=== PATIENT | female | born 1985 | race Caucasian/White ===

== ENCOUNTER → 2017-08-14 | Outpatient (CLI) | payer OTHER ==
[~2017-08-14] MED LIST: DOCU-94 PO; Juice Plus Fruit PO; PREN-83; PRLSR20 PO
[2017-08-14 17:34] LABS: BASO % 0.6 %; BASO ABS # 0.03 K/uL (0-0.2); EOS % 2.7 %; EOS ABS # 0.13 K/uL (0-0.5); HEMATOCRIT 40.2 % (37-47); HEMOGLOBIN 13.5 g/dL (12.0-16.0); IG# 0.01 K/uL (0.00-0.02); LYMPH % 30.2 %; LYMPH ABS # 1.47 K/uL (1.2-3.4); MEAN CELL VOLUME 92.4 fL (80-100); MEAN CORPUSCULAR HGB CONC 33.6 g/dl (32-36); MEAN PLATELET VOLUME 12.2 fL (7.4-10.4); MONO % 8.4 %; MONO ABS # 0.41 K/uL (0.11-0.59); NEUT % 57.9 %; NEUT ABS # 2.81 K/uL (1.4-6.5); PLATELET COUNT 189 K/uL (130-400); RED CELL DISTRIBUTION WIDTH CV 13.3 % (11.5-14.5); RED CELL DISTRIBUTION WIDTH SD 44.9 fL (36.4-46.3); WHITE BLOOD COUNT 4.86 K/uL (4.8-10.8)
[2017-08-14 18:10] LABS: BLOOD UREA NITROGEN 14 mg/dl (7-18); CALCIUM 9.1 mg/dl (8.5-10.1); CARBON DIOXIDE 26 mmol/L (21-32); CREATININE 0.86 mg/dl (0.60-1.20); GLUCOSE 95 mg/dl (70-99); SODIUM 138 mmol/L (136-145)
== END | disposition home or self-care (01) ==
LOC: C.LABPVFM 12:13
PROVIDERS: ATTEND Nurse Practitioner Family
DX: R00.2 Palpitations (principal); R42 Dizziness and giddiness; R53.83 Other fatigue

== ENCOUNTER → 2017-11-05 | Outpatient (CLI) | payer OTHER | END | disposition home or self-care (01) | LOC: C.LABPVFM 09:57 | PROVIDERS: ATTEND Nurse Practitioner Family | DX: E55.9 Vitamin D deficiency, unspecified (principal) ==

== ENCOUNTER → 2018-02-25 | Outpatient (CLI) | payer OTHER ==
--- NOTE | 2018-02-25 20:13 | DIAGNOSTIC IMAGING REPORT ---
LUMBAR SPINE W/O CONTRAST CLINICAL HISTORY: 32 years-old Female with LUMBAR RADICULOPATHY. Chronic low back pain with radiation into the left lower extremity. COMPARISON: Lumbar spine radiographs 08/10/2014 TECHNIQUE: Multiplanar, multi sequence MRI of the lumbar spine was performed without intravenous contrast. 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 Conus medullaris terminates at L1. Visualized thoracic spinal cord appears normal. The cauda equina are within normal limits. No acute fracture, focal bone marrow edema or marrow replacing process. There is mild intervertebral disc space narrowing at T11-T12 with small Schmorl's node involving the superior endplate T12. Small posterior disc bulge flattens the ventral thecal sac at this interspace. There is mild facet arthrosis at this level as well with suggested mild bilateral foraminal narrowing seen only on the sagittal images. Aorta and IVC appear unremarkable. No pathologically enlarged lymph nodes identified. T12-L1: No central canal or neural foraminal stenosis. L1-L2: No central canal or neural foraminal stenosis. L2-L3: No central canal or neural foraminal stenosis. Mild ligamentum flavum thickening. L3-L4: No central canal or neural foraminal stenosis. Mild ligamentum flavum thickening with mild facet arthrosis. L4-L5: Mild intervertebral disc space narrowing with disc desiccation. Circumferential annular disc bulge with annular fissure and small central disc protrusion narrows the AP dimension of the thecal sac to 7 mm causing moderate central canal and mild bilateral foraminal narrowing. Ligamentum flavum thickening with mild facet arthrosis. L5-S1: Ligamentum flavum thickening with mild facet arthrosis contributes to mild left foraminal narrowing. Right foramen and central canal are patent. IMPRESSION: 1. Mild intervertebral disc space narrowing at L4-L5 with circumferential annular disc bulge, annular fissure and small central disc protrusion causes moderate central canal and mild bilateral foraminal narrowing. 2. No acute fracture, subluxation or focal bone marrow edema. The above report was generated using voice recognition software. It may contain grammatical, syntax or spelling errors. Electronically signed by: Nima Quiroz M.D. 02/25/2018 8:12 PM Dictated Date/Time: 02/25/2018 8:02 PM
== END | disposition home or self-care (01) ==
LOC: C.MRI 18:28
PROVIDERS: ATTEND Nurse Practitioner Family
DX: M54.16 Radiculopathy, lumbar region (principal)

== ENCOUNTER 2022-09-04 08:56 | Inpatient (IN) ==
[2022-09-04] MEDS ORDERED: LIDOCAINE 1% LOCAL 20 ML VIAL INFIL PRN (09:10)
[2022-09-04] MEDS ORDERED: OXYTOCIN 30 UNITS/500 ML BAG IV PRN ×2 (09:10)
[2022-09-04] MEDS ORDERED: PENICILLIN G POTASSIUM 6 MU in DEXTROSE 5% 250 ML IV STA (09:15)
[2022-09-04 09:54] LABS: Alanine Aminotransferase 10 U/L (7-52); Albumin Globulin Ratio 1.4 (0.9-2); Albumin Level 3.6 gm/dl (3.4-5.0); Alkaline Phosphatase 125 U/L (34-104); Anion Gap 6 (3-11); BUN Creatinine Ratio 12.7 (10-20); Bilirubin,Total 0.4 mg/dl (0.2-1.0); Blood Urea Nitrogen 8 mg/dl (6-23); Calcium 9.1 mg/dl (8.5-10.1); Carbon Dioxide 22 mmol/L (21-32); Chloride 109 mmol/L (98-107); Est GFR (African American) 135.6 ml/min; Globulin 2.6 gm/dl (2.5-4.0); Glucose 89 mg/dl (70-99(Fasting)); Potassium 3.7 mmol/L (3.5-5.1); Sodium 137 mmol/L (136-145); Total Protein 6.2 gm/dl (6.0-8.3)
--- NOTE | 2022-09-04 09:54 | History & Physical Report ---
Date of Service September 04, 2022 Assessment & Plan (1) Polyhydramnios affecting : (2) Chronic hypertension affecting : Plan: IOL begun with regan + pit. (3) GBS (group B streptococcus) UTI complicating : Plan: PCN IV. Admission and Anticipated Discharge Date Admission Date: September 04, 2022 History of Present Illness Primary Care Provider: Abimbola Nuñez PA-C 36yo at 38w2d with cHTN, GBS+, ulcerative proctitis, and Poly, for medically-indicated IOL. No OB c/o on admission. Allergies Allergy/AdvReac Type Severity Reaction Status Date / Time Sulfa (Sulfonamide Allergy Intermediate Hives Verified 08/26/22 15:20 Antibiotics) Home Medications Medication Instructions Recorded Confirmed Type ascorbic acid (vitamin C) 500 mg 500 mg PO QAM 09/24/18 09/04/22 History tablet (Vitamin C) albuterol sulfate 90 mcg/actuation 1 puffs inhalation Q6H PRN 01/13/19 09/04/22 Rx aerosol inhaler (Ventolin HFA) shortness of breath or wheezing #6.7 grams cholecalciferol (vitamin D3) 125 5,000 unit PO QAM 07/17/20 09/04/22 History mcg (5,000 unit) tablet (Vitamin D3) magnesium 1 tab PO HS 12/03/21 09/04/22 History omega-3 fatty acids 1,000 mg PO QAM 12/03/21 09/04/22 History venlafaxine 100 mg tablet 100 mg PO BID 12/03/21 09/04/22 History mesalamine 1.2 gram tablet,delayed 2.4 g PO BID 90 days #360 tabs 12/09/21 09/04/22 Rx release Past Med/Surg History Medical History Anxiety Asthma inhaler prn Bulging of intervertebral disc between L4 and L5 Degenerative disc disease GERD (gastroesophageal reflux disease) History of chicken pox History of COVID-19 06/2021; sob, cough, body aches, loss taste/smell; resolved. IBS (irritable bowel syndrome) Panic attacks Pelvic floor dysfunction Radicular syndrome of left lower extremity Slow to wake up after anesthesia Ulcerative proctitis Vitamin D deficiency Surgical History History of colonoscopy History of dilatation and curettage History of wisdom tooth extraction Family History Mother Family history of diabetes mellitus Asthma Bipolar 1 disorder Graves disease Grandfather (Maternal) Family history of diabetes mellitus Sister Family history of reaction to anesthesia Eczema Grandmother (Maternal) Lung cancer Coronary heart disease Aneurysm Grandmother (Paternal) Alzheimer disease Social History (Updated 03/07/22 @ 07:51 by Hallie Issa RN) Smoking Status: Never smoker Second Hand Exposure: Yes (as a child); Hx Alcohol Use: No Hx Substance Use: No Preferred Language: Liberian Communication Ability: Effective Visual Impairment: No Limitations Hearing Ability: Normal Forming Roll Operator Required: No Beliefs That Will Affect Care: None marital status: marital status details: Flo Burns (34) [phone] Current Living Situation: Spouse and Family Current Living Situation Comment: Lives with and kids, rabbit. Outside cats current occupational status: unemployed current occupation: Homemaker Feels Safe at Home: Yes Assistive Devices: None Physical Exam Physical Exam: monitoring was used to ensure reassuring status. The patient was verbally consented for placement of a regan for cervical ripening, with discussion of risks, benefits and alternatives. All her questions were answered. Her legs were placed in lithotomy position. A lubricated, gloved hand was used to examine the cervix. A stylet was lubricated and inserted into a regan catheter to give it stiffness, and the regan catheter was then advanced along my fingers until it reached the external cervical os. The regan was then fed forward off of the stylet, which was itself never moved beyond the external os, such that the soft catheter advanced into the uterine cavity outside of the amnion until the balloon was definitely above the internal cervical os. The balloon was then inflated using sterile water to 35cc volume. Gentle traction was used to seat the balloon downward against the internal cervical os. My hand and the stylet were removed from the vagina, and the regan was secured to the patient's leg with a standard regan holding sticker. There was no significant bleeding or leakage of fluid. The heart tones remained reassuring after this process, which the patient tolerated well. Constitutional: WD/WN, vitals as above Eyes: PERRL, conjunctivae normal, anicteric sclerae ENMT: external ear and nose normal, oropharynx normal Neck: supple Respiratory: normal respiratory effort and able to speak in complete sentences; no respiratory distress Cardiovascular: Rate/Rhythm: regular rate and regular rhythm Gastrointestinal (Abdomen): Gravid / AGA, nontender Musculoskeletal: no cyanosis or clubbing, extremities motor strength 5/5 Skin: no rashes, warm and dry Psychiatric: A+Ox3, euthymic affect Genitourinary: Speculum/Bimanual Exam: no vaginal lesions, no vaginal bleeding and uterus nontender OB Exam Abdomen: + vertex and + estimated weight (7) Manual OB Exam: + cervical dilation 1 cm, + cervical effacement 10%, + station -2 and + amniotic fluid (No leaking evident) OB Exam Monitor Tracing: + external FHT monitor used, + external uterine monitor used and + category I Lymphatic: no cervical or axillary lymphadenopathy Results & Data Results & Data ([facility]) Vital Signs (Past 12 Hours) Vital Signs Pulse BP 09/04/22 09:14 76 127/91 PG Care Time/CCT Total # of Minutes Spent Total Time Spent with Patient: Total time spent is greater than 50% in coordination of care (as documented) at patient's floor/unit and/or counseling patient: Coding Level of Care Code None Diagnoses Polyhydramnios affecting O40.9XX0 Chronic hypertension affecting O10.919 GBS (group B streptococcus) UTI complicating O23.40; B95.1
[2022-09-04] MEDS: LACTATED RINGER'S 1,000 ML IV PRN ×2 (10:37→21:38)
[2022-09-04 11:07] LABS: Aspartate Aminotransferase 15 U/L (13-39)
[2022-09-04 13:59] LABS: Hemoglobin 12.4 g/dl (12.0-16.0); Mean Corpuscular Hemoglobin 32.8 pg (25.0-34.0); Mean Corpuscular Hgb Conc 35.4 g/dL (32.0-36.0); Mean Corpuscular Volume 92.6 fL (80.0-100.0); Mean Platelet Volume 12.2 fL (9.4-12.4); Platelet Count 169 K/uL (130-400); RDW Coefficient of Variation 13.3 % (11.5-14.5); RDW Standard Deviation 44.7 fL (36.4-46.3); Red Blood Count 3.78 M/uL (4.20-5.40); White Blood Count 7.39 K/ul (4.8-10.8)
[2022-09-04] MEDS: PENICILLIN G POTASSIUM 3 MU in DEXTROSE 5% 100 ML IV PRN ×3 (14:29→21:50)
--- NOTE | 2022-09-04 16:04 | Labor Progress Brief Note ---
Date of Service September 04, 2022 Subjective Tolerating ctx well Assessment & Plan Admission and Anticipated Discharge Date Admission Date: September 04, 2022 Physical Exam Genitourinary: Diaz removed from vagina /-2 AROM with examiner's hand only; clear fluid [place] Q2min Pit @ 13 FHT Cat 1 Results & Data ([facility]) Vital Signs (Past 12 Hours) Vital Signs Temp Pulse Resp BP 09/04/22 09:21 98.6 F 18 09/04/22 15:24 98.1 F 65 18 144/88 H 09/04/22 14:31 72 138/82 09/04/22 13:42 61 137/90 09/04/22 12:29 98.2 F 58 L 120/78 09/04/22 11:30 98.4 F 66 16 121/86 09/04/22 09:10 18 09/04/22 09:10 98.6 F 18 09/04/22 10:20 72 129/92 09/04/22 09:14 76 127/91 Coding Level of Care Code None
--- NOTE | 2022-09-04 19:50 | Labor Progress Brief Note ---
Date of Service September 04, 2022 Subjective Still not feeling a need for epidural. Assessment & Plan Admission and Anticipated Discharge Date Admission Date: September 04, 2022 Physical Exam Genitourinary: /-2 FHT Cat 1 LOF clear [place] Q 3-5 Pit @ 20 IUPC placed with patient permission; filled with amniotic fluid, first contraction 30MVU, second contraction closer to 50MVU, likely not adequate. Pit limit raised to 30u. Results & Data ([facility]) Vital Signs (Past 12 Hours) Vital Signs Temp Pulse Resp BP 09/04/22 19:01 98.1 F 18 09/04/22 09:21 98.6 F 18 09/04/22 19:05 98.1 F 74 18 133/88 09/04/22 18:28 81 131/91 09/04/22 17:33 71 121/76 09/04/22 16:25 67 131/79 09/04/22 15:24 98.1 F 65 18 144/88 H 09/04/22 14:31 72 138/82 09/04/22 13:42 61 137/90 09/04/22 12:29 98.2 F 58 L 120/78 09/04/22 11:30 98.4 F 66 16 121/86 09/04/22 09:10 18 09/04/22 09:10 98.6 F 18 09/04/22 10:20 72 129/92 09/04/22 09:14 76 127/91 Coding Level of Care Code None
[2022-09-04] MEDS: OXYTOCIN 30 UNITS/500 ML BAG IV PRN ×2 (20:00→23:33)
[2022-09-05] MEDS: PENICILLIN G POTASSIUM 3 MU in DEXTROSE 5% 100 ML IV PRN ×3 (01:46→09:54)
--- NOTE | 2022-09-05 02:27 | Labor Progress Brief Note ---
Date of Service September 05, 2022 Subjective Continues to feel only mild discomfort with contractions despite pitocin at 25. She notes that she did get some more discomfort and had contractions Q2min when she was briefly standing up at the bedside, but they faded when she laid back down. Assessment & Plan (1) Chronic hypertension affecting : Plan: IOL with Diaz, AROM, and pitocin; has never yet gotten uncomfortable enough to want an epidural, and has only briefly reached adequate MVU despite high doses of pitocin. Discussed with patient that she is multiparous and there is reason for optimism that once she enters active labor she should be able to achieve vaginal delivery. However, at this time she has not yet reached active labor, which I know is frustrating for her. We have tried changing pitocin bags and double- checking her IV flow is connected properly, without significant changes in the contraction pattern which is lackluster. Encouraged her to be vertical at the bedside, on a birthing ball or standing, if she can since that was what seemed to encourage her contractions the most. She is agreeable to trying this. Does not want to change plans from continued IOL attempt at this time. Admission and Anticipated Discharge Date Admission Date: September 04, 2022 Physical Exam Genitourinary: Unchanged cervix at 4/50/-2 FHT Cat 1 [place] Q2-4min Pit @ 25u Results & Data ([facility]) Vital Signs (Past 12 Hours) Vital Signs Temp Pulse Resp BP 09/04/22 19:01 98.1 F 18 09/05/22 01:30 97.9 F 67 18 127/86 09/04/22 23:50 20 09/04/22 23:50 98.1 F 20 09/04/22 22:37 77 123/84 09/04/22 21:00 97.5 F L 60 18 126/82 09/04/22 20:12 67 124/83 09/04/22 19:05 98.1 F 74 18 133/88 09/04/22 18:28 81 131/91 09/04/22 17:33 71 121/76 09/04/22 16:25 67 131/79 09/04/22 15:24 98.1 F 65 18 144/88 H 09/04/22 14:31 72 138/82 Coding Level of Care Code None Diagnoses Chronic hypertension affecting O10.919
[2022-09-05] MEDS ORDERED: CITRIC ACID/SODIUM CITRATE 15 ML UDC PO SCH ×2 (06:00→15:30)
--- NOTE | 2022-09-05 06:58 | Labor Progress Brief Note ---
Date of Service September 05, 2022 Subjective Still tolerating contractions without feeling enough discomfort to request epidural. Feeling good FM, no significant VB, ongoing clear LOF. Becoming frustrated and concerned by lack of achievement of active labor or even significantly painful contractions. Assessment & Plan (1) Chronic hypertension affecting : Plan: IOL for medical indications. Patient is a multipara with a proven pelvis to [id number]. Last two growth US on this baby were 75% and 55%ile, so I think CPD is objectively unlikely given the data above. Her fetus is confirmed to be vertex and midline where it should be applying pressure to the cervix if adequate contractions are provided. The fluid has been clear, maternal fever is absent, and FHT have been Cat 1 throughout. While we have used high doses of pitocin, the patient has never yet experienced contractions strong enough to cause her to desire an epidural; in fact she has been sleeping through them much of the time, which is notable and unexpected. Discussed that although she is ruptured and we need to move towards delivery, right now there are no signs of chorioamnionitis or distress. This patient has so many reasons to be optimistic about vaginal delivery, and the course of her labor so far suggests we simply have not achieved strong enough contractions, since there are the above objective reasons to believe the "pelvis" and the "passenger" aren't causing a problem here. Discussed that we will offer a light breakfast while turning off pitocin to allow desaturation of all receptors. We will then start with a fresh bag of pit, preferably from a different prep lot if possible, and will resume IOL after patient has a break. Discussed that there are risks to feeding her when we are mid-labor, specifically as relates to the possibility of food in the stomach if she requires anesthesia for an emergency , however this patient has a clinical picture which (as above) seems to suggest we are more likely to be headed towards eventual vaginal delivery and less likely to be facing a . She is aware of and accepts the risks of eating at this time. Risks of prolonged rupture and IOL including infection and hemorrhage also discussed (Leny CHICAS at bedside during the entire above discussion). While these risks are real, we are mitigating them with ongoing and maternal monitoring, and at this time would say that the best course of action is to continue attempting to achieve , and to take the necessary time for the break described above. Admission and Anticipated Discharge Date Admission Date: September 04, 2022 Physical Exam Genitourinary: /-2 Cervix is slightly more to the left than previously. Ultrasound brought to room and does confirm fetus remains in vertex position with head in midline. [place] Q4-5 Pit @ 30mu/min FHT Cat 1 (125 mod venkatesh + acc -dec) maternal temp 97.5F noted, never febrile, no subjective fever/chills, no malodor or change in apperance of fluid. Results & Data ([facility]) Vital Signs (Past 12 Hours) Vital Signs Temp Pulse Resp BP 09/04/22 19:01 98.1 F 18 09/05/22 06:07 97.5 F L 57 L 18 112/72 09/05/22 04:04 97.5 F L 66 18 139/92 09/05/22 03:28 73 126/89 09/05/22 02:58 20 09/05/22 02:58 20 09/05/22 02:57 74 126/89 09/05/22 01:30 97.9 F 67 18 127/86 09/04/22 23:50 20 09/04/22 23:50 98.1 F 20 09/04/22 22:37 77 123/84 09/04/22 21:00 97.5 F L 60 18 126/82 09/04/22 20:12 67 124/83 09/04/22 19:05 98.1 F 74 18 133/88 Coding Level of Care Code None Diagnoses Chronic hypertension affecting O10.919
[2022-09-05] MEDS: LACTATED RINGER'S 1,000 ML IV PRN ×2 (09:04→14:22)
[2022-09-05] MEDS: OXYTOCIN 30 UNITS/500 ML BAG IV PRN (09:12)
--- NOTE | 2022-09-05 10:58 | Labor Progress Brief Note ---
Date of Service September 05, 2022 Subjective Larger gush of clear fluid, patient has now had a pitocin break and ate breakfast. She has now restarted induction. My exam is - 4-5cm cervix, unable to palpate fetus. FHT Cat 1 [place] rare Will reposition patient to try to get baby to engage in pelvis. Assessment & Plan Admission and Anticipated Discharge Date Admission Date: September 04, 2022 Results & Data ([facility]) Vital Signs (Past 12 Hours) Vital Signs Temp Pulse Resp BP 09/05/22 09:57 86 126/83 09/05/22 09:55 94 H 20 121/81 09/05/22 09:15 36.9 C 67 20 138/86 09/05/22 07:04 36.6 C 76 20 127/87 09/05/22 06:07 36.4 C L 57 L 18 112/72 09/05/22 04:04 36.4 C L 66 18 139/92 09/05/22 03:28 73 126/89 09/05/22 02:58 20 09/05/22 02:58 20 09/05/22 02:57 74 126/89 09/05/22 01:30 36.6 C 67 18 127/86 09/04/22 23:50 20 09/04/22 23:50 36.7 C 20 Coding Level of Care Code None
[2022-09-05] MEDS ORDERED: OXYTOCIN 30 UNITS/500 ML BAG IV PRN (14:15)
--- NOTE | 2022-09-05 14:56 | History & Physical Bridge Note ---
Date of Service September 05, 2022 History & Physical Bridge Note I have examined the patient, reviewed the History & Physical and in the interval since the performance of the History & Physical I have noted the following changes of clinical significance: no changes noted Patient has been on pitocin since yesterday morning, did have a break but then restarted - unable to obtain adequate contractions for labor. Baby is still -3 station. Confirmed cephalic this morning by Dr White. AROM yesterday approx 5pm. Baby had 1 prolonged deceleration, recovered after repositioning and stopping pitocin. Discussed with patient that baby is not even engaged in the pelvis, offered to either continue labor - with the information that if baby continues to have decelerations, will need to have . Or could proceed to now. My opinion is that the baby is not likely to descend or engage, even with more time with pitocin, given that she is not even able to achieve adequate contractions. She would like to proceed with section. Reviewed risks, benefits, alternatives. Informed consent. Questions answered. She is agreeable to proceed.
[2022-09-05] MEDS ORDERED: LACTATED RINGER'S 1,000 ML IV SCH ×2 (15:00→17:45)
[2022-09-05] MEDS ORDERED: ceFAZolin 2000MG 2,000 MG/15 ML SYR IV SCH (15:00)
--- NOTE | 2022-09-05 15:20 | Anesthesiology Consultation ---
Date of Service September 05, 2022 Assessment & Plan (1) Encounter for pre-operative examination: Chart Review Chart Review: Acceptable Risk for Surgery and Patient NOT seen in Pre Admission Testing Consults Requested none History Surgery Operation Date: 09/05/22 15:05 Proposed Procedures p Section in LD - Martha Goldberg DO Yul[place] Height/Weight Height: 5 ft 6 in Weight: 89.811 kg Allergies Allergy/AdvReac Type Severity Reaction Status Date / Time Sulfa (Sulfonamide Allergy Intermediate Hives Verified 08/26/22 15:20 Antibiotics) Medications Home Medications Medication Instructions Recorded Confirmed Last Taken ascorbic acid (vitamin C) 500 mg 500 mg PO QAM 09/24/18 09/04/22 10/11/19 tablet (Vitamin C) albuterol sulfate 90 mcg/actuation 1 puffs inhalation Q6H PRN 01/13/19 09/04/22 10/05/19 aerosol inhaler (Ventolin HFA) shortness of breath or wheezing #6.7 grams cholecalciferol (vitamin D3) 125 5,000 unit PO QAM 07/17/20 09/04/22 Unknown mcg (5,000 unit) tablet (Vitamin D3) magnesium 1 tab PO HS 12/03/21 09/04/22 09/01/22 omega-3 fatty acids 1,000 mg PO QAM 12/03/21 09/04/22 Unknown venlafaxine 100 mg tablet 100 mg PO BID 12/03/21 09/04/22 05/09/22 mesalamine 1.2 gram tablet,delayed 2.4 g PO BID 90 days #360 tabs 12/09/21 09/04/22 09/04/22 release aspirin 81 mg chewable tablet 81 mg PO DAILY 09/04/22 09/04/22 09/04/22 prenat.vits,jaqui,vrd-rgpd-jggtb 1 tab PO DAILY 09/04/22 09/04/22 09/04/22 Active Medications Generic Name Dose Route Start Last Admin Trade Name Freq PRN Reason Stop Dose Admin Lactated Ringer's 1,000 mls @ 125 mls/hr 09/04/22 09:10 09/05/22 14:22 Lr IV 09/06/22 09:09 125 mls/hr .Q8H PRN Administration L&D Protocol Protocol Penicillin G Potassium 3 mu/ 106 mls @ 100 mls/hr 09/04/22 12:12 09/05/22 09:54 Dextrose IV 09/14/22 12:11 100 mls/hr Q4H PRN Administration GBS(+) Until Delivery Past Medical History Medical History Anxiety Asthma inhaler prn Bulging of intervertebral disc between L4 and L5 Degenerative disc disease GERD (gastroesophageal reflux disease) History of chicken pox History of COVID-19 06/2021; sob, cough, body aches, loss taste/smell; resolved. IBS (irritable bowel syndrome) Panic attacks Pelvic floor dysfunction Radicular syndrome of left lower extremity Slow to wake up after anesthesia Ulcerative proctitis Vitamin D deficiency Exercise / Class Metabolic Activity II 4-5 Yardwork/Stairs/Walk up hill Past Family History Family History Mother Family history of diabetes mellitus Asthma Bipolar 1 disorder Graves disease Grandfather (Maternal) Family history of diabetes mellitus Sister Family history of reaction to anesthesia difficulty waking up Eczema Grandmother (Maternal) Lung cancer Coronary heart disease Aneurysm Grandmother (Paternal) Alzheimer disease Past Surgical History Surgical History History of colonoscopy History of dilatation and curettage History of wisdom tooth extraction Social History Smoking Status: Never smoker Hx Alcohol Use: No Hx Substance Use: No substance use type: does not use Physical Exam Vital Signs Last Vital Signs Temp 36.7 C 09/05/22 13:00 Pulse 75 09/05/22 13:57 Resp 20 09/05/22 13:00 BP 139/85 09/05/22 13:57 Testing Laboratory Results 09/04/22 09:21 09/04/22 09:21
[2022-09-05] MEDS ORDERED: PHENYLEPHRINE 100MCG/ML 5ML SYR ONE (15:38)
[2022-09-05] MEDS ORDERED: MoRPHine SULFATE PF 1 MG/ML 10 ML AMP/VIAL ONE (15:38)
[2022-09-05] MEDS ORDERED: fentaNYL citrate 100 MCG/2 ML VIAL ONE (15:38)
[2022-09-05] MEDS ORDERED: OXYTOCIN 10 UNITS/ML 10ML VIAL ONE (15:38)
[2022-09-05] MEDS ORDERED: METHYLERGONOVINE MALEATE 0.2 MG/ML AMP ONE (16:48)
[2022-09-05] MEDS ORDERED: MoRPHine SULFATE PF 1 MG/ML 10 ML AMP/VIAL INT SPINAL ONE ×2 (17:09→19:07)
[2022-09-05] MEDS ORDERED: NALOXONE HCL 0.08 MG in SYRINGE 1.8 ML IV PRN ×2 (17:09→19:07)
[2022-09-05] MEDS ORDERED: LACTATED RINGER'S 500 ML IV PRN ×2 (17:09→19:07)
[2022-09-05] MEDS ORDERED: NALOXONE HCL 0.4 MG/1 ML VIAL/CARP IV PRN ×2 (17:09→19:07)
[2022-09-05] MEDS ORDERED: NALBUPHINE HCL INJ 10 MG/ML AMP IV PRN ×2 (17:09→19:07)
[2022-09-05] MEDS ORDERED: diphenhydrAMINE 50 MG/ML VIAL IV PRN ×2 (17:09→19:07)
[2022-09-05] MEDS ORDERED: KETOROLAC 30 MG/ML VIAL IV PRN (17:09)
[2022-09-05] MEDS ORDERED: ePHEDrine sulfate 50 MG/ML AMP IV PRN ×2 (17:09→19:07)
[2022-09-05] MEDS ORDERED: ONDANSETRON INJ 2 MG/ML 2 ML VIAL IV PRN ×3 (17:09→19:07)
[2022-09-05] MEDS ORDERED: MoRPHine SULFATE 2 MG/ML CARP IV PRN ×2 (17:09→19:07)
[2022-09-05] MEDS ORDERED: NALOXONE HCL 1 MG in SODIUM CHLORIDE 0.9% 1000ML 1,000 ML IV PRN ×2 (17:09→19:07)
[2022-09-05] MEDS ORDERED: PROMETHAZINE HCL 6.25 MG in SODIUM CHLORIDE 0.9% 50 ML IV PRN ×2 (17:09→19:07)
[2022-09-05] MEDS ORDERED: miSOPROStoL 200 MCG TAB ONE (17:14)
[2022-09-05] MEDS ORDERED: DC INTRASPINAL MORPHINE SCH ×2 (17:15→19:15)
[2022-09-05] MEDS ORDERED: NO NARCOTICS OR SEDATIVES SCH ×2 (17:15→19:15)
[2022-09-05] MEDS ORDERED: SODIUM CHLORIDE 0.9% 1000ML 1,000 ML IV SCH ×2 (17:15→19:15)
[2022-09-05 17:24] LABS: Base Excess Cord Arterial Bld -7.8 mEq/L (-9-1.8); CO2 Cord Arterial Blood 70 mmHg (39.1-73.5); HCO3 Cord Arterial Blood 23 mmol/L (19.7-28.5); Oxygen Sat Cord Arterial Blood < 60.0 % (<60); PO2 Cord Arterial Blood 9 mmHg (4.1-31.7); pH Cord Arterial Blood 7.12 (7.1-7.38)
[2022-09-05] MEDS ORDERED: DIPHTHERIA/TETANUS/PERTUSSIS 0.5mL SYR/VIAL (Age 7+yrs) IM ONE (17:44)
[2022-09-05] MEDS ORDERED: BENZOCAINE 20% AER SPR 82.5 GM CAN EXT PRN (17:44)
[2022-09-05] MEDS ORDERED: HYDROCORTISONE ACETATE 25 MG SUPP PR PRN (17:44)
[2022-09-05] MEDS ORDERED: SENNA 8.6 MG TAB PO PRN (17:44)
[2022-09-05] MEDS ORDERED: MAGNESIUM HYDROXIDE SUSP 30 ML UDC PO PRN (17:44)
[2022-09-05] MEDS ORDERED: ALBUTEROL HFA 8 GM INHALER INH PRN (17:44)
--- NOTE | 2022-09-05 17:46 | Operative Report ---
PG Post Operative Report Pre & Post Diagnosis Operation Date: 09/05/22 15:05 Pre-Op Diagnosis: Failure to engage. Post-Op Diagnosis: Failure to engage I identified the patient and participated in the time-out.: Yes Procedure Operation Date: 09/05/22 15:05 Actual Procedures Primary low transverse Section in LD, delivery of live female child at 1631(Bilateral) - Martha Duenas DO Surgeon Martha Duenas DO Oil Spot Washer Malick Grove MD Estimated Blood Loss 600 Findings Consistent with Post-Op Diagnosis Viable female , APGARS/weight pending - please see nursery records. Specimens cord blood, cord gas, placenta Drains regan clear yellow Anesthesia Type Spinal Complications none Disposition Accompanied Patient To Recovery: No Indications 36yo @ 38 10/14, undergoing induction of labor for cHTN. Rupture of membranes 24h ago, baby not engaged in pelvis. Pitocin was at maximum dose, then she was given a pitocin break and a new batch of pitocin was started, then developed variable decelerations. Pitocin was stopped, presenting part was still barely palpable in the pelvis. At that point, we had a discussion about continuing induction vs proceeding with , and she elected for c- section. Description of Procedure The patient was seen in her labor and delivery room, risks benefits and alternatives to surgery were reviewed. Informed consent obtained. Questions were answered. She was taken to the operating room, spinal anesthesia was administered. She was then prepared and draped in the usual sterile fashion in the supine position with a leftward tilt. Timeout was confirmed. A Pfannenstiel skin incision was made with a scalpel, and carried through to the underlying layer of fascia. Fascia was nicked at midline, and this incision was extended bilaterally. The superior aspect of the fascial incision was grasped with Pal clamps x2, elevated off the underlying rectus abdominis muscles, and dissected sharply and bluntly. In similar fashion, the inferior aspect of the fascial incision was dissected. The rectus abdominis muscles were , and the peritoneum was entered bluntly digitally. This was extended bilaterally. The bladder flap was taken down carefully using Metzenbaum scissors. Using a new scalpel, a low transverse uterine incision was created. The infant was delivered from a cephalic presentation. The head delivered, followed by shoulders and body. Spontaneous cry on the field. The cord was doubly clamped and cut, and the was handed off to the waiting certified low vision therapist. A segment was retained for cord gases. Cord blood was obtained. The placenta was delivered spontaneously intact. The uterus was exteriorized, and cleared of all clots and debris. The hysterotomy incision was reapproximated using 0 Vicryl in a running locked stitch. A second layer of the same suture was used to imbricate the incision. Hemostasis achieved with [id number] sutures of 2-0 Vicryl. Posterior uterus was evaluated and normal. The uterus was returned to the abdomen, and gutters were cleared of clots and debris. Excellent hemostasis was observed. The fascial incision was reapproximated using 0 Vicryl in a running stitch. The subcutaneous tissue was irrigated, and reapproximated using 2-0 plain gut in a running stitch. The skin was reapproximated using 4-0 Vicryl in a running subcuticular stitch. Steri-Strips and a bandage were applied. The patient tolerated the procedure well, and will be taken to the recovery area in stable and good condition. Sponge, instruments, needle counts correct x 2. I attest to the content of the Intraoperative Record and any orders documented therein. Any exceptions are noted below. OB Procedure Charges 70192
[2022-09-05] MEDS ORDERED: OXYTOCIN 30 UNITS in LACTATED RINGER'S 1,000 ML IV SCH (18:00)
[2022-09-05] MEDS ORDERED: miSOPROStoL 200 MCG TAB PR ONE (18:04)
[2022-09-05 18:35] LABS: Base Excess Cord Venous Blood -5.8 mEq/L (-7.7-1.9); Cord Venous Blood HCO3 23 mmol/L (18.4-26.8); Cord Venous Blood PCO2 56 mmHg (30.4-57.2); Cord Venous Blood PO2 10 mmHg (14.1-43.3); Cord Venous Blood pH 7.22 (7.20-7.44); O2 Saturation Cord Venous Bld < 60.0 % (<68)
--- NOTE | 2022-09-05 18:50 | Anesthesiology Progress Note ---
Date of Service September 05, 2022 Anesthesia Post Procedure Vital Signs Vital Signs: Temp Pulse Resp BP Pulse Ox 09/05/22 18:30 20 09/05/22 18:20 20 09/05/22 18:10 20 09/05/22 18:00 20 09/05/22 17:50 20 09/05/22 17:40 20 09/05/22 17:30 36.7 C 20 09/04/22 19:01 36.7 C 18 09/05/22 18:47 83 100 09/05/22 18:42 69 100 09/05/22 18:37 70 100 09/05/22 18:32 73 100 09/05/22 18:30 74 118/64 09/05/22 18:27 67 100 09/05/22 18:22 62 99 09/05/22 18:20 58 L 120/68 09/05/22 18:17 63 100 09/05/22 18:12 65 99 09/05/22 18:10 67 121/62 09/05/22 18:07 70 99 09/05/22 18:05 67 92 09/05/22 18:01 66 100 09/05/22 18:00 68 116/56 L 09/05/22 17:56 67 99 09/05/22 17:51 100 09/05/22 17:51 65 09/05/22 17:51 71 132/70 09/05/22 17:46 77 76 L 09/05/22 17:41 71 94 09/05/22 17:42 70 90 09/05/22 17:40 67 112/56 L 09/05/22 17:36 65 100 09/05/22 17:33 66 91 09/05/22 17:31 67 100 09/05/22 17:26 98 09/05/22 17:26 68 09/05/22 17:26 66 113/61 09/05/22 13:57 75 139/85 09/05/22 13:00 20 09/05/22 13:00 36.7 C 20 09/05/22 13:01 72 128/76 09/05/22 12:00 77 12 130/91 09/05/22 11:05 75 126/85 09/05/22 09:57 86 126/83 09/05/22 09:55 94 H 20 121/81 09/05/22 09:15 36.9 C 67 20 138/86 09/05/22 07:04 36.6 C 76 20 127/87 09/05/22 06:07 36.4 C L 57 L 18 112/72 09/05/22 04:04 36.4 C L 66 18 139/92 09/05/22 03:28 73 126/89 09/05/22 02:58 20 09/05/22 02:58 20 09/05/22 02:57 74 126/89 09/05/22 01:30 36.6 C 67 18 127/86 09/04/22 23:50 20 09/04/22 23:50 36.7 C 20 09/04/22 22:37 77 123/84 09/04/22 21:00 36.4 C L 60 18 126/82 09/04/22 20:12 67 124/83 09/04/22 19:05 36.7 C 74 18 133/88 Transfer of Care Handoff Completed per policy Notes Mental Status: alert / awake / arousable and participated in evaluation Patient Amnestic to Procedure: No Nausea / Vomiting: adequately controlled Pain: adequately controlled Airway Patency, RR, SpO2: stable & adequate BP & HR: stable & adequate Hydration State: stable & adequate Neuraxial Anesthesia: was administered and sensory block is resolving Anesthetic Complications: no major complications apparent and Pt Satisfied with anesthetic care
[2022-09-05] MEDS: KETOROLAC 30 MG/ML VIAL IV PRN (19:33)
[2022-09-05] MEDS: DOCUSATE SODIUM 100 MG CAP PO SCH (22:36)
[2022-09-05] MEDS: SIMETHICONE 80 MG CHEW PO SCH (22:36)
[2022-09-06] MEDS: KETOROLAC 30 MG/ML VIAL IV PRN ×2 (02:20→10:42)
[2022-09-06 07:16] LABS: Basophils # (auto) 0.03 K/uL (0-0.2); Basophils % (auto) 0.3 %; Eosinophils # (auto) 0.02 K/uL (0-0.50); Eosinophils % (auto) 0.2 %; Hemoglobin 9.3 g/dl (12.0-16.0); Immature Granulocytes # (auto) 0.04 K/uL (0.01-0.20); Immature Granulocytes % (auto) 0.4 %; Lymphocytes # (auto) 0.86 K/uL (1.2-3.4); Lymphocytes % (auto) 8.4 %; Mean Corpuscular Hemoglobin 31.8 pg (25.0-34.0); Mean Corpuscular Hgb Conc 34.4 g/dL (32.0-36.0); Mean Corpuscular Volume 92.5 fL (80.0-100.0); Mean Platelet Volume 12.1 fL (9.4-12.4); Monocytes % (auto) 7.9 %; Neutrophils # (auto) 8.43 K/uL (1.40-6.50); Neutrophils % (auto) 82.8 %; Platelet Count 133 K/uL (130-400); RDW Coefficient of Variation 13.7 % (11.5-14.5); RDW Standard Deviation 45.6 fL (36.4-46.3); Red Blood Count 2.92 M/uL (4.20-5.40); White Blood Count 10.18 K/ul (4.8-10.8)
[2022-09-06] MEDS: FERROUS SULFATE 325 MG TAB PO SCH (08:33)
[2022-09-06] MEDS: DOCUSATE SODIUM 100 MG CAP PO SCH ×2 (08:33→21:07)
[2022-09-06] MEDS: PRENATAL VITAMIN 1 TAB PO SCH (08:33)
[2022-09-06] MEDS: SIMETHICONE 80 MG CHEW PO SCH ×4 (08:33→21:07)
[2022-09-06] MEDS: SERTRALINE HCL 50 MG TABLET PO SCH (09:33)
--- NOTE | 2022-09-06 09:35 | Obstetrical Progress Note ---
Date of Service September 06, 2022 Assessment & Plan (1) Encounter for supervision of normal in multigravida: POD1 doing well. Discussed goals of ambulating, PO fluid intake, advance diet today. Subjective Ambulation: ambulating normally Voiding: no voiding problems Diet Tolerance:: regular diet Lochia:: Moderate Review of Systems All systems reviewed & are unremarkable except as noted in HPI & below Physical Exam Constitutional WD/WN, vitals as above no acute distress Respiratory normal respiratory effort Cardiovascular Rate/Rhythm: regular rate and regular rhythm Gastrointestinal (Abdomen) Inspection/Auscultation: abdomen normal to inspection; abdomen not distended Percussion/Palpation: abdomen soft Genitourinary OB Exam Abdomen: + fundal height Fundus: + firm; not tender Results & Data ([facility]) Vital Signs (Past 12 Hours) Vital Signs Temp Pulse Resp BP Pulse Ox Pulse Ox O2 Del Method 09/06/22 08:00 37.1 C 71 16 100/64 100 Room Air 09/06/22 08:05 16 100 09/06/22 06:02 20 100 09/06/22 05:09 20 99 09/06/22 04:00 16 99 09/06/22 02:45 36.9 C 71 20 115/76 99 Room Air 09/06/22 02:45 99 09/06/22 03:00 18 98 09/06/22 02:00 20 99 09/06/22 01:02 18 98 09/06/22 00:06 16 100 09/05/22 23:15 18 100 09/05/22 23:15 36.8 C 67 18 121/80 100 Room Air 09/05/22 23:15 100 09/05/22 22:03 18 100 O2 Del Method 09/06/22 08:00 09/06/22 08:05 09/06/22 06:02 09/06/22 05:09 09/06/22 04:00 09/06/22 02:45 09/06/22 02:45 Room Air 09/06/22 03:00 09/06/22 02:00 09/06/22 01:02 09/06/22 00:06 09/05/22 23:15 09/05/22 23:15 09/05/22 23:15 Room Air 09/05/22 22:03
[2022-09-06] MEDS: MESALAMINE 1.2 GM PO SCH ×2 (09:53→21:06)
[2022-09-06] MEDS ORDERED: KETOROLAC 30 MG/ML VIAL IV PRN (11:10)
[2022-09-06] MEDS ORDERED: PROMETHAZINE HCL 25 MG in SODIUM CHLORIDE 0.9% 50 ML IV PRN (11:10)
[2022-09-06] MEDS ORDERED: diphenhydrAMINE Capsule 25 MG CAP PO PRN (11:10)
[2022-09-06] MEDS ORDERED: diphenhydrAMINE 50 MG/ML VIAL IV PRN (11:10)
[2022-09-06] MEDS: oxyCODONE/ACETAMINOPHEN 5mg/325mg TAB PO PRN ×3 (12:57→22:04)
[2022-09-06] MEDS: IBUPROFEN 600 MG TAB PO PRN ×2 (17:59→22:05)
[2022-09-06] MEDS ORDERED: bisacodyL 5 MG TABEC PO SCH (20:00)
[2022-09-07] MEDS: oxyCODONE/ACETAMINOPHEN 5mg/325mg TAB PO PRN ×3 (02:00→12:01)
[2022-09-07 06:04] LABS: Hematocrit (blood only) 26.4 % (37.0-47.0)
[2022-09-07] MEDS: FERROUS SULFATE 325 MG TAB PO SCH (07:28)
[2022-09-07] MEDS: DOCUSATE SODIUM 100 MG CAP PO SCH (07:28)
[2022-09-07] MEDS: SIMETHICONE 80 MG CHEW PO SCH ×2 (07:28→12:00)
[2022-09-07] MEDS: PRENATAL VITAMIN 1 TAB PO SCH (07:29)
[2022-09-07] MEDS: IBUPROFEN 600 MG TAB PO PRN ×2 (07:29→12:01)
[2022-09-07] MEDS: SERTRALINE HCL 50 MG TABLET PO SCH (07:31)
[2022-09-07] MEDS: MESALAMINE 1.2 GM PO SCH (07:32)
--- NOTE | 2022-09-07 07:42 | Obstetrical Progress Note ---
Date of Service September 07, 2022 Assessment & Plan (1) Chronic hypertension affecting : (2) Encounter for supervision of normal in multigravida: Plan 36 yo POD 2 from [facility], doing well -Meeting all pp milestones -O+/rubella immune/ -pt desires d/c home today, ok to do so. Will plan for 1 wk bp check/fu and f/u 6 weeks for appt Subjective Ambulation: ambulating normally Voiding: no voiding problems Passing Gas:: Yes Diet Tolerance:: regular diet Lochia:: Small Feeding Type:: breast feeding Pain managed with medication Review of Systems Denies fevers, chills, n/v, VELAZQUEZ, CP, SOB Physical Exam Constitutional WD/WN, vitals as above no acute distress Respiratory normal respiratory effort, lungs clear to auscultation Cardiovascular RRR, no murmur, no edema Gastrointestinal (Abdomen) Percussion/Palpation: abdomen soft; abdomen nontender fundus firm at umbilicus and NT, incision c/d/i Musculoskeletal BLE symmetric, nonerythematous, nontender Results & Data ([facility]) Vital Signs (Past 12 Hours) Vital Signs Temp Pulse Resp BP Pulse Ox O2 Del Method 09/07/22 07:25 97.9 F 59 L 20 134/82 99 Room Air 09/06/22 23:38 98.2 F 62 18 132/78 97 Room Air
[2022-09-07] MEDS ORDERED: bisacodyL 10 MG SUPP PR PRN (17:42)
== END 2022-09-07 15:20 | disposition home or self-care (01) | DRG 787 ==
LOC: 4S1 08:56 → 4E2 09-05 20:38